=== PATIENT | female | born 1980 | race Hispanic/Latino ===

== ENCOUNTER 2018-03-04 16:40 | Emergency (ER) | payer BC ==
[2018-03-04 16:47] VITALS: TEMP 97.7; O2SAT 100
[2018-03-04] MEDS ORDERED: DiphenhydrAMINE 50 mg/ml Inj IV STA (16:58)
[2018-03-04] MEDS ORDERED: Albuterol 0.083% Inhal Sol (2.5 mg/3 mL) UD INH STA (17:00)
[2018-03-04] MEDS ORDERED: DiphenhydrAMINE 50 mg/ml Inj ONE (17:04)
--- NOTE | 2018-03-04 17:11 | ED PDOC ---
HPI: Allergic Reaction Time Seen by Provider: 03/04/18 16:52 Chief Complaint (Nursing): Allergic Reaction Chief Complaint (Provider): Allergic Reaction History Per: Patient History/Exam Limitations: no limitations Onset/Duration Of Symptoms: Hrs (x4) Current Symptoms Are (Timing): Still Present Context: Food Associated Symptoms: Skin Rash. denies: Swelling, Trouble Swallowing Home/EMS Treatment: Benadryl, Epi-pen Additional Complaint(s): 38 year old female with no significant past medical history but an allergy to tree nuts, presents to the ED for a allergic reaction , onset 4 hours prior to arrival. Patient reports for lunch around 1 o'clock in the afternoon, she had a salad that may have contained nuts. Patient states she developed wheezing and rash but administered an epi-pen and took Benadryl then went to [facility] for other medication where she was given an injection. Patient had some improvement at the Urgent Clinic and was discharged home. At home, patient states she developed a rash and hives once again as well as feeling nauseous. Patient vomited once in our waiting room due to nausea. Patient currently appears with mild shortness of breath Denies throat pain, throat swelling, difficulty swallowing, swelling in mouth or tongue, abdominal pain, diarrhea, and fever. PMD: Dr. Edgar Turcios Past Medical History Reviewed: Historical Data, Nursing Documentation, Vital Signs Vital Signs: Last Vital Signs Temp 97.7 F 03/04/18 16:45 Pulse 107 H 03/04/18 16:45 Resp 16 03/04/18 16:45 BP 111/75 03/04/18 16:45 Pulse Ox 100 03/04/18 16:45 - Surgical History Surgical History: No Surg Hx - Family History Family History: States: No Known Family Hx - Home Medications Home Medications: Ambulatory Orders Medication Instructions Recorded Epinephrine HCl [Epipen 0.3 mg MR ONCE #1 kit 03/04/18 Auto-Injector] - Allergies Allergies/Adverse Reactions: Allergies Allergy/AdvReac Type Severity Reaction Status Date / Time tree nut Allergy ANAPHYLAXIS Verified 03/04/18 16:44 Review of Systems ROS Statement: Except As Marked, All Systems Reviewed And Found Negative Respiratory: Positive for: Shortness of Breath, Wheezing Gastrointestinal: Positive for: Nausea, Vomiting Skin: Positive for: Rash Physical Exam - Reviewed Nursing Documentation Reviewed: Yes Vital Signs Reviewed: Yes - Physical Exam Appears: Positive for: Non-toxic (Comfortable), No Acute Distress Head Exam: Positive for: ATRAUMATIC, NORMOCEPHALIC Skin: Positive for: Rash (mild erythematous, macural, uticaria type rash; diffuse, ) Eye Exam: Positive for: EOMI, Normal appearance, PERRL ENT: Positive for: Normal ENT Inspection. Negative for: Tonsillar Swelling, Other (No lips swelling, ENT swelling, Face swelling ) Neck: Positive for: Normal, Painless ROM, Supple Cardiovascular/Chest: Positive for: Regular Rate, Rhythm. Negative for: Murmur Respiratory: Positive for: Normal Breath Sounds. Negative for: Respiratory Distress Gastrointestinal/Abdominal: Positive for: Normal Exam, Soft. Negative for: Tenderness Extremity: Positive for: Normal ROM. Negative for: Pedal Edema, Deformity Neurologic/Psych: Positive for: Alert, Oriented (x3). Negative for: Motor/ Sensory Deficits - Laboratory Results Result Diagrams: 03/04/18 17:15 03/04/18 17:15 - ECG O2 Sat by Pulse Oximetry: 100 (RA) Pulse Ox Interpretation: Normal - Progress ED Course And Treament: Time: 1714 Impression: Allergic reaction to tree nuts; Urticaria, wheezing, nausea, and vomiting Plan: -- BMP -- CBC with differentials -- Peak Flow Pre/Post Treatment Time: Re-Evaluation: Scribe Attestation: Documented by Singh Tobin, acting as a scribe for Dr. Power Gonzalez. Provider Scribe Attestation: All medical record entries made by the Scribe were at my direction and personally dictated by me. I have reviewed the chart and agree that the record accurately reflects my personal performance of the history, physical exam, medical decision making, and the department course for this patient. I have also personally directed, reviewed, and agree with the discharge instructions and disposition. Re-evaluation Time: 18:53 Condition: Re-examined, Improved Disposition - Clinical Impression Clinical Impression: Allergic reaction, Urticaria - Patient ED Disposition Is Patient to be Admitted: Transfer of Care Doctor Will See Patient In The: Office Counseled Patient/Family Regarding: Studies Performed, Diagnosis, Need For Followup - Disposition Disposition: Transfer of Care Disposition Time: 19:00 Condition: STABLE Prescriptions: Epinephrine HCl [Epipen Auto-Injector] 0.3 mg MR ONCE #1 kit Instructions: Johanny (MICHELLE) Patient Signed Over To: Chandra Crane
[2018-03-04] MEDS ORDERED: Albuterol 0.042% Inhal Sol (1.25 mg/3 mL) UD ONE (17:17)
[2018-03-04 17:18] LABS: BASO % 0.3 % (0.0-2.0); EOS # 0.1 K/uL (0.0-0.7); EOS % 0.6 % (0.0-4.0); HEMOGLOBIN 14.6 g/dL (12.0-16.0); LYMPH # 3.1 K/uL (1.0-4.3); LYMPH % 25.8 % (20.0-40.0); MEAN CELL VOLUME 95.1 fl (81.0-99.0); MEAN CORPUSCULAR HEMOGLOBIN 31.8 pg (27.0-31.0); MEAN CORPUSCULAR HGB CONC 33.4 g/dL (33.0-37.0); MEAN PLATELET VOLUME 7.6 fl (7.2-11.7); MONO # 0.8 K/uL (0.0-0.8); MONO % 6.4 % (0.0-10.0); NEUT # 7.9 K/uL (1.8-7.0); NEUT % 66.9 % (50.0-75.0); RBC 4.58 Mil/uL (3.80-5.20); RED CELL DISTRIBUTION WIDTH 12.7 % (11.5-14.5); WHITE BLOOD COUNT 11.9 K/uL (4.8-10.8)
[2018-03-04 17:31] LABS: BLOOD UREA NITROGEN 17 mg/dl (7-17); CALCIUM 9.2 mg/dL (8.4-10.2); GFR AFRICAN-AMERICAN > 60; GFR NON-AFRICAN AMERICAN > 60
[2018-03-04] MEDS ORDERED: Potassium Chloride 20 mEq ER Tab PO ONE (18:16)
[2018-03-04 18:23] VITALS: BP 102/57; PULSE 64; RESP 19
--- NOTE | 2018-03-04 20:36 | ED PDOC ---
- Laboratory Results Result Diagrams: 03/04/18 17:15 03/04/18 17:15 - ECG O2 Sat by Pulse Oximetry: 100 (RA) Pulse Ox Interpretation: Normal Medical Decision Making Medical Decision MakinPM Patient was endorsed to me by Dr. Gonzalez pending re-eval. 8PM Patient significantly improved 830PM Patient reports resolution of symptoms, nor rash or SOB, states she feels well and wants to go home. Currently s/p 7 hours after epinephrine, no longer concerned for rebound anaphylaxis. Will prescribe epi-pen, patient has benadryl at home. Advised to return if any other symptoms develop such as symptoms of throat closure, sob, worsening rash, or any other concerning symptoms. Patient currently has no rash, very well appearing, comfortable, normal vitals, no soft tissue swelling on ENT exam. Disposition - Clinical Impression Clinical Impression: Allergic reaction, Urticaria - POA Present On Arrival: None - Disposition Referrals: [facility] [Outside] Disposition: Routine/Home Disposition Time: 20:36 Condition: IMPROVED Prescriptions: Epinephrine HCl [Epipen Auto-Injector] 0.3 mg MR ONCE #1 kit Prednisone [Deltasone] 60 mg PO DAILY 3 Days tablet Instructions: Johanny MCBRIDE)
== END 2018-03-04 21:03 | disposition home or self-care (01) ==
LOC: H.ER 16:40
DX: T78.40XA Allergy, unspecified, initial encounter (principal); L50.0 Allergic urticaria
CPT/HCPCS: 80048; 85025; 94150; 94640; 96374; 96375; 99285; J1200; J2930